=== PATIENT | male | born 1960 | race Two or more races ===

== ENCOUNTER 2025-04-25 07:51 | Emergency (ER) | payer MEDICARE, SELFPAY ==
[2025-04-25] VITALS (7 sets, daily range): BP systolic 153–181; BP diastolic 108–122; PULSE 98–112; RESP 16–24; TEMP 36.6–36.9; O2SAT 90–94; BMI 24.1
--- NOTE | 2025-04-25 09:57 | EKG_ITS ---
[facility] Test Date: 2025-04-25 Pat Name: TRE LOREDO Department: Room: - Gender: Male Inside Wirer: : 1959-09-29 Requested By: Brittney Schneider Order Number: [id number] Reading MD: Brittney Schneider Measurements Intervals [place] Rate: 101 P: 40 CA: 169 QRS: -41 QRSD: 94 T: 24 QT: 369 QTc: 478 Interpretive Statements SINUS TACHYCARDIA LEFT AXIS DEVIATION [QRS AXIS < -30] No previous ECG available for comparison /[id number]/S0/[id number]
--- NOTE | 2025-04-25 09:57 | XR_ITS ---
Examination: AP chest single view Technique one AP portable upright chest single view Date and time: April 25, 2025, 10:04 AM INDICATIONS: Chest pain today. FINDINGS: Normal heart size No pneumonia or pulmonary edema. Mild osteopenia IMPRESSION:: No active disease 2 mm nodule left upper lobe, in the absence of prior chest films recommend 3 month follow-up PA chest
--- NOTE | 2025-04-25 09:59 | EDNOTE_ITS ---
ED Fall Injury RME/HPI General Chief Complaint: Fall Stated Complaint: FALL Time Seen by Provider: 04/25/25 09:18 Arrival date/time: 04/25/25 07:51 Limitations: no limitations RME / HPI RME / HPI Narrative: 65-year-old male here for evaluation of fall. States that he had been drinking yesterday, usually drinks an 18 ounce [place] every day. Had gotten up around 6:00 this morning to go to the bathroom, fell after that. States that this has happened several times in the past. Is usually unable to get up when this happens and requires assistance. States that he was on the floor for about 3 hours. Feeling somewhat tired and thirsty currently but otherwise no other acute symptoms at this time. Related Data Previous Rx's ?Medication ?Instructions ?Recorded amlodipine 10 mg tablet (Norvasc) 10 mg PO QDAY #30 ta bs 04/25/25 Allergies Allergy/AdvReac Type Severity Reaction Status Date / Time No Known Allergies Allergy Verified 04/25/25 08:02 Review of Systems Review of Systems Systems Reviewed: All systems reviewed, normal except as documented Past Medical History Past Medical History CARDIAC: Positive Hypertension ENDOCRINE: Positive Diabetes Mellitus Type 2 Social History SMOKING STATUS: Never smoker Past Medical History Comments PMH COMMENT: Diabetes, hypertension, hyperlipidemia ED Exam Narrative Physical exam: Constitutional: Awake, alert, nontoxic, no acute distress HEENT: Normocephalic, atraumatic, extraocular movements intact. Neck: Supple CV: Tachycardic rate and irregular rhythm, no murmurs/rubs/gallops Lungs: Clear to auscultation BL, no respiratory distress. Abd: Soft, NT, ND, no HSM noted to palpation Extremities: No deformities, no edema noted Neuro: AAOx3, CN 2-12 GIBL, no acute neuro deficit noted. Skin: Warm, dry, intact General Limitations: Present no limitations Course Course Course Narrative: 1000h: 65-year-old male coming in for evaluation after a fall with inability to get up afterwards with history of same in the past several times. Was drinking last night. Initial labs and imaging ordered and pending. 1230h: Checked on patient, he is well-appearing, no additional symptoms. Blood pressure improved from initial. Notes that he has not been taking his blood pressure medication and possibly a week or more. Have advised on medication compliance for blood pressure control. Will give prescription of Norvasc for home. Will advise on close outpatient follow-up with PCP for blood pressure recheck in the next few days. Stable for discharge. Return precautions advised. 1244h: Patient passed ambulation trial. Quality Measures none Orders Category Date Time Status Assistant Tennis Professional STAT Care 04/25/25 09:57 Active Continuous Pulse Oximetry ONCE Care 04/25/25 09:57 Active EKG (ED ONLY) *Do not use* NOW Care 04/25/25 09:57 Completed Insert IV STAT Care 04/25/25 09:57 Active EKG (ED Only) Stat Exams 04/25/25 09:57 Draft XR chest 1V portable Stat Exams 04/25/25 09:57 Completed B-Type Natriuretic Peptide Stat Lab 04/25/25 09:50 Completed CBC Stat Lab 04/25/25 09:50 Completed CK [Creatine Kinase] Stat Lab 04/25/25 09:50 Completed Comprehensive Metabolic Panel Stat Lab 04/25/25 09:50 Completed Troponin I Stat Lab 04/25/25 09:50 Completed Labetalol IV [Trandate IV] Med 04/25/25 11:37 Discontinued 20 mg IVP X1 ONE Sodium Chloride 0.9% 1000 ml [Ns] 1,000 ml Med 04/25/25 09:56 Discontinued IV 999 mls/hr Vital Signs Vital signs: Vital Signs Temperature 98.5 F 04/25/25 08:04 Pulse Rate 110 H 04/25/25 08:04 Respiratory Rate 18 04/25/25 08:04 Blood Pressure 181/122 H 04/25/25 08:04 Pulse Oximetry (%) 91 L 04/25/25 08:04 Oxygen Delivery Method Room Air 04/25/25 08:04 Pulse ox is 91% on room air which is hypoxic. Fall MDM Narrative MDM Narrative:: Isela Ortiz am scribing for and in the presence of Dr. Estes. Patient data External records reviewed:: [facility] previous records and EMS form Clinical information provided by:: patient and EMS Social determinants that could affect healthcare access:: none Patient has the following chronic illnesses:: Hypertension How is presenting disease/condition affected by chronic disease/condition?: exacerbated by Evaluation data The following diagnostics were reviewed and interpreted by me:: lab results, radiology exam(s) and EKG tracing(s) (EKG @ 10:35 AM. Sinus tachycardia, rate 101, left axis deviation, no STEMI. ) Lab and/or radiology exams considered but not ordered:: none Interpretation Summary: CXR IMPRESSION: No active disease 2 mm nodule left upper lobe, in the absence of prior chest films recommend 3 month follow-up PA chest Laboratory Results WBC 2.8 Thou/mm3 (3.8-10.6) L 04/25/25 09:50 RBC 4.26 Miln/mm3 (4.50-5.90) L 04/25/25 09:50 Hgb 14.1 g/dL (13.5-16.0) 04/25/25 09:50 Hct 40.1 % (41.0-53.0) L 04/25/25 09:50 MCV 94 fL (80-100) 04/25/25 09:50 MCH 33.1 pg (25.0-35.0) 04/25/25 09:50 MCHC 35.2 g/dl (31.0-37.0) 04/25/25 09:50 RDW Std Deviation 43.8 fL (35.1-43.9) 04/25/25 09:50 Plt Count 69 Thou/mm3 (140-440) L 04/25/25 09:50 Neut % (Auto) 48 % (37-80) 04/25/25 09:50 Lymph % (Auto) 39 % (10-50) 04/25/25 09:50 [place] % (Auto) 9 % (0-12) 04/25/25 09:50 Eos % (Auto) 3 % (0-10) 04/25/25 09:50 Baso % (Auto) 1 % (0-2.5) 04/25/25 09:50 Neut # (Auto) 1.4 Thou/mm3 (1.8-7.7) L 04/25/25 09:50 Lymph # (Auto) 1.1 Thou/mm3 (1.0-4.8) 04/25/25 09:50 [place] # (Auto) 0.3 Thou/mm3 (0.0-0.8) 04/25/25 09:50 Eos # (Auto) 0.1 Thou/mm3 (0.0-0.5) 04/25/25 09:50 Baso # (Auto) 0.0 Thou/mm3 (0.0-0.2) 04/25/25 09:50 Immature Gran # (Auto) 0.01 Thou/mm3 (0.00-0.00) H 04/25/25 09:50 Absolute Nucleated RBC 0.00 Thou/mm3 (0.00-0.00) 04/25/25 09:50 Immature Gran % 0 % (0-0) 04/25/25 09:50 Nucleated RBC % 0 /100 WBC (0) 04/25/25 09:50 Sodium 148 mMol/L (136-145) H 04/25/25 09:50 Potassium 3.7 mMol/L (3.4-5.1) 04/25/25 09:50 Chloride 107 mMol/L (98-107) 04/25/25 09:50 Carbon Dioxide 27.7 mMol/L (20.0-31.0) 04/25/25 09:50 Anion Gap 13 (7-16) 04/25/25 09:50 BUN 7 mg/dL (9-23) L 04/25/25 09:50 Creatinine 1.0 mg/dL (0.6-1.3) 04/25/25 09:50 Estim Creat Clear Calc 69.4 mL/min (>60) 04/25/25 09:50 eGFR > 60 See Note (60-) 04/25/25 09:50 BUN/Creatinine Ratio 7 Ratio (12-20) L 04/25/25 09:50 Glucose 164 mg/dL (74-106) H 04/25/25 09:50 Calculated Osmolality 296 (275-295) H 04/25/25 09:50 Calcium 9.6 mg/dL (8.3-10.6) 04/25/25 09:50 Corrected Calcium 9.6 mg/dL (8.5-10.1) 04/25/25 09:50 Total Bilirubin 0.7 mg/dL (0.3-1.2) 04/25/25 09:50 AST 126 U/L (0-34) H 04/25/25 09:50 ALT 68 U/L (10-49) H 04/25/25 09:50 Alkaline Phosphatase 127 U/L (46-116) H 04/25/25 09:50 Total Creatine Kinase 284 U/L (34-171) H 04/25/25 09:50 Troponin I 0.041 ng/mL (0.0-0.045) 04/25/25 09:50 B-Natriuretic Peptide < 20 pg/mL (0-100) 04/25/25 09:50 Total Protein 7.7 gm/dL (5.7-8.2) 04/25/25 09:50 Albumin 4.4 gm/dL (3.4-4.8) 04/25/25 09:50 Globulin 3.3 gm/dL (2.3-3.5) 04/25/25 09:50 Albumin/Globulin Ratio 1.3 (1.2-2.2) 04/25/25 09:50 Misc Test Result Platelets confirmed 04/25/25 09:50 Medications / Prescriptions Medications or Prescriptions considered but not ordered:: None Medication administrations:: Medication Administration History Discontinued Medications Sodium Chloride (Ns) 1,000 mls @ 999 mls/hr IV .Q1H1M ONE Stop: 04/25/25 10:56 Last Infusion: 04/25/25 11:23 Dose: Infused Documented By: Admin: 04/25/25 10:03 Dose: 999 mls/hr Documented By: BY Labetalol HCl (Labetalol Inj 5 Mg/Ml Vial 20 Ml) 20 mg IVP X1 ONE Stop: 04/25/25 11:38 Last Admin: 04/25/25 11:48 Dose: 20 mg Documented By: BY as above Consultations Consultation(s) initiated? (list below): No Diagnosis Fall Differential Diagnosis: syncope and other Most likely diagnosis given after review of the tests above:: Fall, alcohol use, deconditioning Admission Indicated Admission indicated?: not indicated Admission Request Was there a request for admission?: No Disposition Plan Disposition Plan: Discharge Discharge Attestation Discharge Attestation: The patient and all family members were given an opportunity to ask questions and understood the discharge instructions. Discharge instructions specifically effects, indications for sooner follow up or return to the emergency department, and the expected course of current diagnosis. Patient condition: Stable Discharge Plan Plan Patient Disposition: HOME (Self Care) Patient condition on transfer: Stable Prescriptions/Referrals Prescriptions/Med Rec: New amlodipine [Norvasc] 10 mg tablet 10 mg PO QDAY Qty: 30 0RF Referrals: Rashaun Engel MD [Primary Care Provider, Family Practice] - In 1 week Problem List Clinical Impression: Fall, Alcohol abuse, Hypertension, uncontrolled Patient/Caregiver Discharge Instructions Education Materials: The Impact of Alcoholism, Alcoholism: Getting Help, Alcohol Addiction, ED Hypertension, Established Additional Instructions: Some general health principles that can help you are the NEW START principles: Nutrition (eat a plant-based diet, avoiding meats in general, avoiding highly processed foods) Exercise (Daily exercise/walks as tolerated) Water (Drink adequate fresh water to maintain hydration, concentrating on water rather than on soda, coffee, tea, juice, etc for hydration) [place] (Spend time - 15-20 minutes or so with skin exposed in the survey research associate and late evening sun for Vitamin D health benefits) [place] (Avoid alcohol, illicit drugs, caffeinated beverages, smoking, etc) Air (Deep breathing exercises in the early mornings in fresh air) Rest (Adequate rest at night, going to bed a few hours before midnight and avoiding all screens/television/loud music in the time right before going to bed, also avoiding heavy meals just prior to going to bed) Trust in God (Spend time daily in Bible study and prayer - health benefits in contemplation of God's true character) Additional resources that can benefit: [email or web address] Mobile, look under resources and seminars. Print Language: Irish Stand Alone Forms: Karina Award Info., Patient Portal Info Letter
[2025-04-25] MEDS: SODIUM CHLORIDE 0.9% 1000 ML 1,000 ML 999 ML IV (10:03)
[2025-04-25 10:19] LABS: Basophils # (Auto) 0.0 Thou/mm3 (0.0-0.2); Basophils % (Auto) 1 % (0-2.5); Eosinophils # (Auto) 0.1 Thou/mm3 (0.0-0.5); Eosinophils % (Auto) 3 % (0-10); Hematocrit 40.1 % (41.0-53.0); Hemoglobin 14.1 g/dL (13.5-16.0); Immature Granulocytes Auto 0.01 Thou/mm3 (0.00-0.00); Lymphocytes # (Auto) 1.1 Thou/mm3 (1.0-4.8); Lymphocytes % (Auto) 39 % (10-50); Mean Corpuscular HGB Conc 35.2 g/dl (31.0-37.0); Mean Corpuscular Hemoglobin 33.1 pg (25.0-35.0); Mean Corpuscular Volume 94 fL (80-100); Monocytes # (Auto) 0.3 Thou/mm3 (0.0-0.8); Monocytes % (Auto) 9 % (0-12); Neutrophils # (Auto) 1.4 Thou/mm3 (1.8-7.7); Neutrophils % (Auto) 48 % (37-80); Nucleated Red Blood Cell # 0.00 Thou/mm3 (0.00-0.00); Nucleated Red Blood Cell % 0 /100 WBC (0); RDW Standard Deviation 43.8 fL (35.1-43.9); Red Blood Count 4.26 Miln/mm3 (4.50-5.90); White Blood Count 2.8 Thou/mm3 (3.8-10.6)
[2025-04-25 10:28] LABS: Platelet Count 69 Thou/mm3 (140-440)
[2025-04-25 10:36] LABS: Alanine Aminotransferase 68 U/L (10-49); Albumin, Serum 4.4 gm/dL (3.4-4.8); Albumin/Globulin Ratio 1.3 (1.2-2.2); Alkaline Phosphatase 127 U/L (46-116); Anion Gap 13 (7-16); Aspartate Amino Transferase 126 U/L (0-34); BUN/Creatinine Ratio 7 Ratio (12-20); Bilirubin,Total 0.7 mg/dL (0.3-1.2); Blood Urea Nitrogen 7 mg/dL (9-23); Calcium 9.6 mg/dL (8.3-10.6); Calcium (Corrected) 9.6 mg/dL (8.5-10.1); Carbon Dioxide 27.7 mMol/L (20.0-31.0); Chloride 107 mMol/L (98-107); Creatine Kinase 284 U/L (34-171); Creatinine (Component) 1.0 mg/dL (0.6-1.3); Estimated Creatinine Clearance 69.4 mL/min (>60); Globulin 3.3 gm/dL (2.3-3.5); Glucose 164 mg/dL (74-106); Osmolality,Calculated 296 (275-295); Potassium 3.7 mMol/L (3.4-5.1); Sodium 148 mMol/L (136-145); Total Protein 7.7 gm/dL (5.7-8.2); Troponin I 0.041 ng/mL (0.0-0.045); eGFR > 60 See Note
[2025-04-25 10:44] LABS: B-Type Natriuretic Peptide < 20 pg/mL (0-100)
--- NOTE | 2025-04-25 11:03 | PC.NURSE ---
famiy [facility]
[2025-04-25 11:06] LABS: Slide Review Platelets confirmed
[2025-04-25] MEDS: LABETALOL INJ 5 MG/ML VIAL 20 ML 20 MG IVP (11:48)
--- NOTE | 2025-04-25 12:46 | PC.NURSE ---
patient was able to ambulate with no issues
== END 2025-04-25 13:32 | disposition home or self-care (01) ==
PROVIDERS: Emergency Provider Family Medicine; PCP Family Medicine
DX: R55 Syncope and collapse (principal); F10.10 Alcohol abuse, uncomplicated; R00.0 Tachycardia, unspecified; R07.9 Chest pain, unspecified; I10 Essential (primary) hypertension; E78.5 Hyperlipidemia, unspecified; E11.9 Type 2 diabetes mellitus without complications; W19.XXXA Unspecified fall, initial encounter; Y92.002 Bathroom of unspecified non-institutional (private) residence as the place of occurrence of the external cause
CPT/HCPCS: 36415; 71045; 80053; 82550; 83880; 84484; 85025; 93005; 96374; 99284; J3490; J7030; J1920